=== PATIENT | male | born 1975 | race African-American/Black ===

== ENCOUNTER 2017-03-13 23:38 | Emergency (ER) | payer OTHER ==
[~2017-03-13] VITALS: Ht 182.9 cm; Wt 70.0 kg
[2017-03-13 23:41] VITALS: Ht 182.9 cm; Wt 70.0 kg
[2017-03-14] MEDS ORDERED: IBUPROFEN 600 MG TAB PO ONE (00:30)
--- NOTE | 2017-03-14 00:35 | ERD ---
ER Documentation Chief Complaint Date/Time DATE: 03/14/17 TIME: 00:33 Chief Complaint right hand and right wrist pain after hitting the door HPI 41-year-old male presents here in emergency department for complaints of right hand pain and right wrist pain after hitting the door today. Patient described the pain as throbbing pain, 8/10 scale, is worse upon movement accompanied with swelling. Patient did not take any medications elevated symptoms. Patient denies any numbness or tingling. Patient denies any fever or chills. ROS All systems reviewed and are negative except as per history of present illness. Medications Home Meds Reported Medications [None] No Conflict Check 08/02/13 Allergies Allergies: Uncoded Allergies: DENIES (Allergy, 12/14/13) NONE (Allergy, 08/02/13) PMhx/Soc Medical and Surgical Hx: pt denies Medical Hx, pt denies Surgical Hx Hx Alcohol Use: No Hx Substance Use: No Hx Tobacco Use: No Smoking Status: Never smoker FmHx Family History: No coronary disease, No diabetes, No other Physical Exam Vitals Vital Signs Date Time Temp Pulse Resp B/P Pulse Ox O2 Delivery O2 Flow Rate FiO2 03/13/17 23:41 97.7 71 20 119/73 100 Physical Exam GENERAL: The patient is well developed and appropriate for usual state of health, in no apparent distress. CHEST: Clear to auscultation bilaterally. There are no rales, wheezes or rhonchi. HEART: Regular rate and rhythm. No murmurs, clicks, rubs or gallops. No S3 or S4. ABDOMEN: Soft, nontender and nondistended. Good bowel sounds. No rebound or guarding. No gross peritonitis. No gross organomegaly or masses. No White sign or McBurney point tenderness. BACK: No midline or flank tenderness. EXTREMITIES: Noted tenderness on palpation on the lateral aspect of the dorsal aspect of the right hand and the ulnar aspect of the right wrist. No deformity noted. Able to do full range of motion but with pain. Equal pulses bilaterally. Full range of motion about the joints of the body. Grossly neurovascularly intact. NEURO: Alert and oriented. Cranial nerves 2-12 intact. Motor strength in all 4 extremities with 5/5 strength. Sensation grossly intact. Normal speech and gait. SKIN: There is no apparent rash or petechia. The skin is warm and dry. HEMATOLOGIC AND LYMPHATIC: There is no evidence of excessive bruising or lymphedema. No gross cervical, axillary, or inguinal lymphadenopathy. Results 24 hrs Current Medications Medications (Trade) Dose Ordered Sig/Harrison Route PRN Reason Start Time Stop Time Status Last Admin Dose Admin Ibuprofen (Motrin) 600 mg ONCE ONCE PO 03/14/17 00:30 03/14/17 00:31 DC 03/14/17 00:47 Patient was given medication for pain here in emergency department, after treatment, patient verbalized feeling much better. Patient's pain is improved. PROCEDURE: XR wrist. CLINICAL INDICATION: Trauma. TECHNIQUE: AP, lateral and oblique views of the right wrist was obtained. COMPARISON: There are no similar studies submitted for comparison. FINDINGS: There is no acute fracture or dislocation. No destructive osseous lesions are seen. The joint spaces are unremarkable. IMPRESSION: No acute fracture or dislocation. RPTAT: HIKT .Mike Diop MD, Date Time Electronically viewed and signed by .Mike Diop MD, on 03/14/2017 01:44 .T/ CC: MORGAN RODRIGUEZ NP PROCEDURE: RIGHT HAND - 3 VIEWS CLINICAL INDICATION: 41-year-old male with right hand and wrist pain following trauma. TECHNIQUE: AP, lateral and oblique views of the right hand were obtained. The images reviewed on a PACS workstation. COMPARISON: Right wrist obtained concurrently. FINDINGS: The bones of the hand appear intact, with no evidence of fracture, dislocation, or subluxation. The joint spaces are preserved. Bone mineralization is within normal limits. No radiopaque foreign body is seen. IMPRESSION: Unremarkable right hand radiographs. .Valeriy Weinstein MD, MD Date Time Electronically viewed and signed by .Valeriy Weinstein MD, on 03/14/2017 01:36 .M/ CC: MORGAN RODRIGUEZ NP After receiving patients xray report, a Velcro wrist support was applied on the patients right hand. After application of the splint, patient has intact sensation and circulation on distal area of the affected joint. Patient does not complain of numbness or tingling after application of the splint. Patient tolerated procedure well. A sling was given to use afterwards. Procedures/MDM Medical Decision Making: Patient's pain is most likely consistent with a contusion or a sprain. There is no suspicion for neurovascular compromise. Patient has intact sensation and circulation of the affected extremity. There is low suspicion for septic arthritis. Patient does not have any fever. Radiology exams of the affected area does not show any fracture or dislocation. Disposition: Home. Patient is given prescription for ibuprofen for pain, tramadol for severe pain. Patient was advised to elevate the affected area and apply ice on affected area. Patient was advised that if symptoms are worse, numbness, tingling, high fever, unable to move joint, worsening symptoms, to return to emergency department immediately. Otherwise, patient is advised to follow up with the primary care doctor in 5-7 days for reevaluation of symptoms. Departure Diagnosis: Primary Impression: Hand contusion Encounter type: initial encounter Laterality: right Qualified Code: S60.221A - Contusion of right hand, initial encounter Additional Impression: Wrist sprain Encounter type: initial encounter Laterality: right Qualified Code: S63.501A - Wrist sprain, right, initial encounter Condition: Stable Patient Instructions: Contusion, Hand, Wrist Sprain Additional Instructions: Patient is given prescription for ibuprofen for pain, tramadol for severe pain. Patient was advised to elevate the affected area and apply ice on affected area. Patient was advised that if symptoms are worse, numbness, tingling, high fever, unable to move joint, worsening symptoms, to return to emergency department immediately. Otherwise, patient is advised to follow up with the primary care doctor in 5-7 days for reevaluation of symptoms. MORGAN RODRIGUEZ NP March 14, 2017 00:35
--- NOTE | 2017-03-14 01:36 | RADRPT ---
PROCEDURE: RIGHT HAND - 3 VIEWS CLINICAL INDICATION: 41-year-old male with right hand and wrist pain following trauma. TECHNIQUE: AP, lateral and oblique views of the right hand were obtained. The images reviewed on a PACS workstation. COMPARISON: Right wrist obtained concurrently. FINDINGS: The bones of the hand appear intact, with no evidence of fracture, dislocation, or subluxation. The joint spaces are preserved. Bone mineralization is within normal limits. No radiopaque foreign body is seen. IMPRESSION: Unremarkable right hand radiographs. .Valeriy Weinstein MD, MD Date Time Electronically viewed and signed by .Valeriy Weinstein MD, MD on 03/14/2017 01:36 .M/
--- NOTE | 2017-03-14 01:45 | RADRPT ---
PROCEDURE: XR wrist. CLINICAL INDICATION: Trauma. TECHNIQUE: AP, lateral and oblique views of the right wrist was obtained. COMPARISON: There are no similar studies submitted for comparison. FINDINGS: There is no acute fracture or dislocation. No destructive osseous lesions are seen. The joint spaces are unremarkable. IMPRESSION: No acute fracture or dislocation. RPTAT: HIKT .Mike Diop MD, MD Date Time Electronically viewed and signed by .Mike Diop MD, on 03/14/2017 01:44 .T/
[2017-03-14] MEDS ORDERED: TRAM50TA2 PO (01:54)
[2017-03-14] MEDS ORDERED: IBUP-1542 PO (01:54)
[2017-03-14 02:10] VITALS: BP 118/69; PULSE 72; RESP 20; TEMP 98.7
== END 2017-03-14 02:11 | disposition home or self-care (01) ==
LOC: FTE 23:38
DX: S60.221A Contusion of right hand, initial encounter (principal); S63.501A Unspecified sprain of right wrist, initial encounter; W22.8XXA Striking against or struck by other objects, initial encounter; Y92.9 Unspecified place or not applicable

== ENCOUNTER 2017-06-22 07:56 | Emergency (ER) | payer SELFPAY ==
[~2017-06-22] VITALS: Wt 70.0 kg
[~2017-06-22 07:56] MED LIST: IBUP-1542 PO; TRAM50TA2 PO
[2017-06-22] MEDS ORDERED: PEN500 PO (08:26)
[2017-06-22] MEDS ORDERED: IBUP800T25 PO (08:26)
[2017-06-22] MEDS ORDERED: HYDR-906 PO (08:26)
[2017-06-22] MEDS ORDERED: HYDROCODONE/APAP (5/325) TAB PO ONE (08:30)
--- NOTE | 2017-06-22 09:18 | ERD ---
ER Documentation Chief Complaint Date/Time DATE: 06/22/17 TIME: 09:16 Chief Complaint DENTAL PAIN RIGHT UPPER MOLAR HPI This a 6-year-old male who presents emergency department today complaining of right-sided dental pain and some jaw pain for the last couple of days. States he took 400 mg of Advil this morning. Denies any fevers or chills. ROS All systems reviewed and are negative except as per history of present illness. Medications Home Meds Active Scripts Penicillin V Potassium* (Penicillin V K*) 500 Mg Tab, 500 MG PO QID for 7 Days, TAB Prov:STEPAN WONG PA-C 06/22/17 Ibuprofen* (Motrin*) 800 Mg Tab, 800 MG PO Q6, #30 TAB Prov:STEPAN WONG PA-C 06/22/17 Hydrocodone/Acetaminophen (Tampa 5-325 Tablet) 1 Each Tablet, 1 TAB PO Q6H Y for PAIN, #10 TAB Prov:STEPAN WONG PA-C 06/22/17 Tramadol HCl (Tramadol HCl) 50 Mg Tablet, 50 MG PO Q6 Y for SEVERE PAIN LEVEL 7- 10, #20 TAB Prov:MORGAN RODRIGUEZ [employer] 03/14/17 Ibuprofen* (Motrin*) 600 Mg Tab, 600 MG PO Q6H Y for PAIN AND OR ELEVATED TEMP, #30 TAB Prov:MORGAN RODRIGUEZ [employer] 03/14/17 Reported Medications [None] No Conflict Check 08/02/13 Allergies Allergies: Uncoded Allergies: DENIES (Allergy, 12/14/13) NONE (Allergy, 08/02/13) PMhx/Soc History of Surgery: No Anesthesia Reaction: No Hx Neurological Disorder: No Hx Respiratory Disorders: No Hx Cardiac Disorders: No Hx Psychiatric Problems: No Hx Miscellaneous Medical Probl: Yes Hx Alcohol Use: No Hx Substance Use: No Hx Tobacco Use: No Smoking Status: Never smoker Physical Exam Vitals Vital Signs Date Time Temp Pulse Resp B/P Pulse Ox O2 Delivery O2 Flow Rate FiO2 06/22/17 08:05 97.3 80 17 140/90 98 Physical Exam Const: No acute distress Head: Atraumatic Eyes: Normal Conjunctiva ENT: Normal External Ears, Nose and Mouth. Right-sided upper molar with evidence of decay and fracture. Mild tenderness at TMJ joint Neck: Full range of motion..~ No meningismus. Resp: Clear to auscultation bilaterally Cardio: Regular rate and rhythm, no murmurs Skin: No petechiae or rashes Neur: Awake and alert Psych: Normal Mood and Affect Results 24 hrs Current Medications Medications (Trade) Dose Ordered Sig/Harrison Route PRN Reason Start Time Stop Time Status Last Admin Dose Admin Acetaminophen/ Hydrocodone Bitart (T[place] (5/325)) 1 tab ONCE ONCE PO 06/22/17 08:30 06/22/17 08:31 DC 06/22/17 08:27 Procedures/MDM This is a 42-year-old male presents the emergency department today complaining of some right-sided jaw pain and dental pain for the past couple of days. On physical exam patient has poor dentition. His right upper molar is decayed and has a fracture in it. This is likely the source of patient's pain. Patient symptoms at this time is consistent with dental pain and possible early abscess. He is afebrile and otherwise well-appearing. Patient was given [place] here in the emergency department. Patient was given a prescription for Pen-Vee K to cover him for any dental abscess, Tampa and Naprosyn. I also gave him referral information for [facility]. I instructed the patient that we would not continue to give him pain medication here in the emergency department. Pain understood At this time the patient is stable for discharge and outpatient management. Patient should follow up with their PCP in the next 1-2 days. They may return to the emergency department sooner for any persistent or worsening of symptoms. Patient understood and agreed with the plan. Departure Diagnosis: Primary Impression: Pain, dental Condition: Fair Patient Instructions: Dental Pain Referrals: [facility] YOU HAVE RECEIVED A MEDICAL SCREENING EXAM AND THE RESULTS INDICATE THAT YOU DO NOT HAVE A CONDITION THAT REQUIRES URGENT TREATMENT IN THE EMERGENCY DEPARTMENT. FURTHER EVALUATION AND TREATMENT OF YOUR CONDITION CAN WAIT UNTIL YOU ARE SEEN IN YOUR DOCTORS OFFICE WITHIN THE NEXT 1-2 DAYS. IT IS YOUR RESPONSIBILITY TO MAKE AN APPOINTMENT FOR FOLOW-UP CARE. IF YOU HAVE A PRIMARY DOCTOR --you should call your primary doctor and schedule an appointment IF YOU DO NOT HAVE A PRIMARY DOCTOR YOU CAN CALL OUR PHYSICIAN REFERRAL HOTLINE AT IF YOU CAN NOT AFFORD TO SEE A PHYSICIAN YOU CAN CHOSE FROM THE FOLLOWING [facility] [address] [facility] [address] [facility] [address] [facility] [address] [facility] [address] [facility]. [facility] [address] [facility] ([facility] walk in clinic) Additional Instructions: Call your primary care doctor TOMORROW for an appointment during the next 1-2 days.See the doctor sooner or return here if your condition worsens before your appointment time. Take Tampa for severe pain otherwise take Naprosyn or Tylenol or Motrin Take antibiotics as prescribed Make an appointment at [facility] dentist STEPAN WONG PA-C Jun 22, 2017 09:18
== END 2017-06-22 08:40 | disposition home or self-care (01) ==
LOC: FTE 07:56
DX: K08.89 Other specified disorders of teeth and supporting structures (principal)
CPT/HCPCS: 99284